=== PATIENT | male | born 1955 | race Caucasian/White ===

== ENCOUNTER 2017-11-19 07:56 | Observation (INO) | payer OTHER ==
--- NOTE | 2017-11-10 10:08 | Diagnostic Imaging Report ---
PROCEDURE: X-RAY CHEST, TWO VIEWS COMPARISON: None. INDICATIONS: PREOPERATIVE CHEST XRAY FOR PROSTATE BIOPSY FINDINGS: LUNGS: No consolidations or edema. PLEURA: No effusions or pneumothorax. HEART \T\ MEDIASTINUM: The heart is within normal size-limits. BONES \T\ SOFT TISSUES: No acute findings. CONCLUSION: No acute thoracic abnormality. Frankie Cazares D.O. Dictated by: Frankie Cazares D.O. on 11/10/2017 at 10:12 Electronically approved by: Frankie Cazares D.O. on 11/10/2017 at 10:12
[2017-11-10 10:21] LABS: INR 1.01; PROTHROMBIN TIME 12.5 seconds (11.9-14.5)
[2017-11-10 10:22] LABS: PARTIAL THROMBOPLASTIN TIME 28.1 seconds (23.8-35.5)
[~2017-11-19] VITALS: Ht 175.3 cm; Wt 111.1 kg
[2017-11-19] MEDS ORDERED: LEVOFLOXACIN 500MG/D5W 100ML 100 ML IV ONE (09:46)
[2017-11-19] MEDS ORDERED: LEVOFLOXACIN 500MG/D5W 100ML 100 ML IV SCH ×3 (12:15→21:00)
[2017-11-19] MEDS ORDERED: HYDROCODONE/APAP 7.5MG-325MG 1 EA TAB PO PRN (12:15)
--- NOTE | 2017-11-19 12:50 | Operative Report ---
DATE OF PROCEDURE: November 19, 2017 PREOPERATIVE DIAGNOSIS: Elevated prostate-specific antigen. POSTOPERATIVE DIAGNOSIS: Elevated prostate-specific antigen. OPERATION PERFORMED: Ultrasound-directed transrectal prostate biopsies. ANESTHESIA: General. INDICATIONS: This patient is a 62-year-old white male whom I have been following for several years for rising PSA. He has had previous negative biopsies. The patient's most recent prostate-specific antigen shot up to 25. For further details, please refer to the history and physical. The procedure was done in the following fashion. DESCRIPTION OF PROCEDURE: The patient taken to the operating room, placed under general anesthesia and then transferred over to a lateral decubitus position with the right side up. An ultrasound scan of the prostate was performed, which revealed an enlarged prostate with some internal calcifications. The seminal vesicles appeared normal. There were no discrete hypoechoic areas. Sextant biopsies were performed using the [employer] spring-loaded biopsy gun through the ultrasound probe. Specimens were taken from the right apex lateral, right apex medial, right mid lateral, then right mid medial, then right base lateral, then right base medial, then left apex lateral, then left apex medial, then left mid lateral, then left mid medial, then left apex lateral, then left apex medial. Once the 12 specimens were obtained, the ultrasound probe was removed. The patient was returned to a supine position, and an 18-[place] Gillespie catheter was inserted. The patient tolerated procedure well and left the operating room in good condition. He will be monitored overnight on IV Levaquin, and the Gillespie catheter will be removed in the morning for a trial of voiding. Job#: [id number]
[2017-11-19] MEDS: SODIUM CHLORIDE 0.9% 1000ML 1,000 ML IV SCH ×2 (13:31→20:18)
[2017-11-19 13:43] VITALS: BP 131/70
[2017-11-19] MEDS ORDERED: FENTANYL CITRATE/PF 100MCG/2 ML INJ ONE (14:34)
[2017-11-19] MEDS ORDERED: MIDAZOLAM HCL 2 MG/2 ML VIAL ONE (14:34)
[2017-11-19] MEDS ORDERED: LIDOCAINE HCL 2% LOCAL INJ 5 ML SDV VIAL INJ ONE (16:26)
[2017-11-19] MEDS ORDERED: DEXAMETHASONE SOD PHOS INJ 4 MG/ML VIAL ONE (16:26)
[2017-11-19] MEDS ORDERED: SEVOFLURANE INHAL SOLN 250 ML PEN BTL ONE (16:26)
[2017-11-19] MEDS ORDERED: ONDANSETRON HCL INJ 2 MG/ML VIAL ONE (16:26)
[2017-11-19] MEDS ORDERED: PROPOFOL IV EMULSION 10 MG/ML 20 ML VIAL ONE (16:26)
[2017-11-19] MEDS: DOCUSATE SODIUM 100 MG CAP PO SCH (16:49)
[2017-11-19 17:32] VITALS: BP 132/66
[2017-11-19 20:00] VITALS: BP 147/68
[2017-11-20] VITALS: BP 132/68
[2017-11-20 04:00] VITALS: BP 108/56
[2017-11-20] MEDS: SODIUM CHLORIDE 0.9% 1000ML 1,000 ML IV SCH (04:56)
[2017-11-20 08:19] VITALS: BP 124/68
[2017-11-20] MEDS: DOCUSATE SODIUM 100 MG CAP PO SCH (08:31)
[2017-11-20 12:15] VITALS: BP 145/74
[2017-11-20] MEDS ORDERED: MACROBID 100 M100 MG PO (13:02)
--- NOTE | 2017-11-20 13:27 | Progress Note ---
DATE: November 20, 2017 DISCHARGE PROGRESS NOTE The patient is now 1 day status post ultrasound directed transrectal prostate biopsy. The Gillespie catheter has been removed. He is voiding clear-colored urine without difficulty. He states that he wants to go home. There is no fever. Physical examination reveals that the patient is breathing well. His abdomen is soft. There is no evidence of deep venous thrombophlebitis. The urine does look clear in the collection bottle. My plan at this time is to discharge the patient on Macrobid 100 mg p.o. twice daily for 7 days. He will have a return appointment to see me again in 2 weeks to go over the results of the prostate biopsy. Job#: [id number] LINDA
== END 2017-11-20 13:37 | disposition home or self-care (01) ==
LOC: OR 07:56 → PACU V 12:03 → IMCU 13:05
PROVIDERS: ADMIT Urology; ATTEND Urology
DX: N41.0 Acute prostatitis (principal); R97.20 Elevated prostate specific antigen [PSA]; N40.0 Benign prostatic hyperplasia without lower urinary tract symptoms; K64.4 Residual hemorrhoidal skin tags; E66.9 Obesity, unspecified; Z68.35 Body mass index [BMI] 35.0-35.9, adult
CPT/HCPCS: 36415; 55700; 71046; 76872; 76942; 85610; 85730; 88305; 88342; 93005; G0378 ×2; J1100; J1956; J2001; J2250; J2405; J7030 ×2